=== PATIENT | male | born 1965 | race Caucasian/White ===

== ENCOUNTER 2021-11-27 11:04 | Outpatient (REF) | payer OTHER, SELFPAY ==
[2021-11-27 13:36] LABS: Mean Corpuscular Hemoglobin 31.2 pg (27.0-33.0); Mean Corpuscular Volume 91.8 fL (80.0-98.0); Platelet Count 283 X10*3/uL (160-400); Red Cell Distribution Width 12.5 % (11.0-16.0); White Blood Count 5.6 X10*3/uL (4.8-10.8)
[2021-11-27 14:04] LABS: Albumin Level 4.2 g/dL (3.5-5.0); Alkaline Phosphatase 76 U/L (39-117); Anion Gap 11 (12-20); Bilirubin Total 1.2 mg/dL (0.0-1.0); Blood Urea Nitrogen 15 mg/dL (9-16); Calcium 9.3 mg/dL (8.4-10.2); Carbon Dioxide 25 mmol/L (22-29); Chloride 104 mmol/L (96-108); Cholesterol 215 mg/dL; Estimated Glomerular Filt Rate 58; Glucose Random 113 mg/dL (60-115); HDL Cholesterol 56 mg/dL; LDL Cholesterol Calculated 130 mg/dl; Potassium 4.4 mmol/L (3.3-5.1); Sodium 136 mmol/L (135-145); Total Protein 7.1 g/dL (6.5-8.0); Triglycerides 145 mg/dL
[2021-11-27 14:25] LABS: TSH reflex Free T4 1.88 uIU/mL (0.32-4.0)
[2021-12-20 09:56] LABS: Hematocrit 45.9 % (42.0-52.0); Hemoglobin 15.6 g/dl (14.0-18.0); Mean Platelet Volume 9.6 fL (9.4-12.4)
[2021-12-20 09:58] LABS: Aspartate Amino Transferase 21 U/L (5-37)
[2021-12-20 09:59] LABS: Alanine Aminotransferase 22 U/L (0-40); Prostate Specific Antigen Scr 0.71 ng/mL (<0.05-4.0)
== END 2021-11-27 11:05 | disposition home or self-care (01) ==
LOC: HO.WFDLDS 11:04
PROVIDERS: Visit Provider Hospitalist
DX: Z00.00 Encounter for general adult medical examination without abnormal findings (principal); Z12.5 Encounter for screening for malignant neoplasm of prostate
CPT/HCPCS: 36415; 80053; 80061; 84153; 84443; 85027

== ENCOUNTER 2023-06-13 14:44 | Outpatient (AMB) | payer OTHER, SELFPAY ==
--- NOTE | 2023-06-13 14:57 | A.OFFPC_ITS ---
Vital Signs 06/13/23 15:00 Height 5 ft 6 in Weight 176 lb BMI 28.4 BP 140/76 H Blood Pressure Location Lt brachial Position Sitting Respiration 12 Pulse 70 Pulse Source Pulse Oximeter Pulse Oximetry (%) 98 Oxygen Delivery Method Room Air Intake Visit Reasons: trans of care from [facility]/ [facility] Intake Note: Patient is here as transfer of care from [facility]. Patient needs refill of his Vyvanse on Saturday. Allergies No Known Allergies Allergy (Verified 06/13/23 15:01) Tobacco use date assessed: 11/27/21 Dental Screening Dental Screen Date: 06/13/23 Did you have a dental visit in the last 12 months?: Yes Did you have a dental problem in the last 6 months where you did not have access to dental care?: No Was dental information given to patient?: Patient has dentist HPI trans of care from [facility]/ [facility] HPI Details Transfer?care?from?[facility] Prior?PCP:??[facility] Acute?issue(s): PMHx:??ADHD SurgHx: Chest wall fatty Mass, R achilles Bone Spur, R elbow tendonitis. Cervical fusion. SocHx: Currently trying to quit. a few cigs per month. EtOH: Rarely. No drugs PFSH Surgical History Herniated cervical disc Family History Father No problems noted. Mother No problems noted. Social History Housing: House Alcohol intake: never Patient Tobacco Use Status: Former Tobacco user e-Cigarette/Vaping Use: Never Used Second Hand Smoke Exposure: No service: No Current occupational status: unemployed Cognitive needs: No Hearing needs: No Vision needs: No Questionnaire Thrive Questionnaire Date Thrive assessed: 11/27/21 DONA-7 AMB Questionnaire DONA-7 Date DONA - 7 assessed: 10/17/22 Source: Developed by Drs. Francisco Sandoval, Elyssa Cisneros, Devon Ma and colleagues, with an educational francie from [employer]. Review of Systems Const Denies chills, Denies fatigue, Denies fever(s), Denies headache(s) and Denies weakness ENT Denies dizziness and Denies headache(s) Card Denies chest pain, Denies lightheadedness, Denies dyspnea and Denies other (Palpitations) Resp Denies cough, Denies dyspnea, Denies wheezing and Denies other ( shortness of breath) Musc Denies numbness and Denies tingling Neuro Denies dizziness, Denies headache(s), Denies numbness, Denies tingling, Denies paresthesias and Denies weakness Psych Denies anxiety and Denies depression Endo Denies fatigue Aller/Immun Denies wheezing Physical exam (Primary Care) Vital Signs: Last Vital Signs Pulse 70 06/13/23 15:00 Resp 12 06/13/23 15:00 BP 140/76 H 06/13/23 15:00 Pulse Ox 98 06/13/23 15:00 Oxygen Delivery Method Room Air 06/13/23 15:00 BMI result Body Mass Index 28.4 Tobacco/Smoking Status: Tobacco use Status Tobacco use date assessed 11/27/21 06/13/23 14:59 Patient Tobacco Use Status Former Tobacco user 06/13/23 14:59 e-Cigarette/Vaping Use Never Used 06/13/23 14:59 Thrive Assessment: Date of Thrive Assessment Date Thrive assessed 11/27/21 06/13/23 14:59 Const General: no acute distress and well developed Nutritional Appearance: well nourished Orientation/consciousness: patient oriented x3 HENMT Head: Yes normocephalic and Yes atraumatic Eyes General: appearance normal, both eyes and all related structures Pupils: Equal, round and reactive pupils present EOM: EOMs intact bilaterally Resp Effort & Inspection: normal respiratory effort Auscultation: clear to auscultation bilaterally Cardio Rate: regular rate Rhythm: regular rhythm Heart sounds: S1 normal heart sound present, S2 normal heart sound present, no gallops, no murmurs and no rubs Neuro General: patient oriented x3 and gait normal Cranial nerves: Yes Equal, round and reactive pupils present Psych Affect: normal affect Assessment and Plan Assessment & Plan (1) ADHD: Code(s): F90.9 - Attention-deficit hyperactivity disorder, unspecified type Qualifiers: Attention deficit-hyperactivity disorder type: combined inattentive- hyperactive Qualified Code(s): F90.2 - Attention-deficit hyperactivity disorder, combined type Plan: Patient?has?been?taking?Vyvanse?consistently?with?his?prior?PCP,?Joanna?Saba W ill?continue?this?medication.??Patient?will?fill?out?treatment?agreement?contrac t?today. Continue?current?medication.??Patient?understands?that?he?will?need?to?be?seen?a t?least?3?to?4?times?a?year (2) Smoker: Code(s): F17.200 - Nicotine dependence, unspecified, uncomplicated Plan: Almost?completely?quit Encouraged?ongoing?work?at?cessation. (3) Anxiety: Code(s): F41.9 - Anxiety disorder, unspecified Plan: Patient?is?under?a?lot?of?stress?due?to?the?health?of?his?sister. Offered?therapist?and?briefly?mention?that?medications?are?available. Patient?declines?at?present?but?I? let?him?know?that?he?can?discuss?this?with?me?if?he?changes?his?mind. (4) Pre-hypertension: Code(s): R03.0 - Elevated blood-pressure reading, without diagnosis of hypertension Plan: Will?continue?to?follow. Encouraged?diet,?exercise?and?weight?loss?as?well?as?avoiding?salt/sodium. (5) White coat syndrome without hypertension: Code(s): R03.0 - Elevated blood-pressure reading, without diagnosis of hypertension Plan: Patient?checks?his?blood?pressures?at?home?and?they?are?a?little?lower?but?still ?in?prehypertensive?range. Continue?to?follow?this (6) Laboratory exam ordered as part of routine general medical examination: Code(s): Z00.00 - Encounter for general adult medical examination without abnormal findings Plan: Check?lab Coding Level of Care Code Est Pt Level 4 (47799) Diagnoses Attention deficit hyperactivity disorder (ADHD), combined type F90.2 Attention deficit-hyperactivity disorder type: combined inattentive- hyperactive Smoker F17.200 Anxiety F41.9 Pre-hypertension R03.0 White coat syndrome without hypertension R03.0 Laboratory exam ordered as part of routine general medical examination Z00.00
[2023-06-13 15:00] VITALS: BP 140/76; PULSE 70; RESP 12; O2SAT 98; BMI 28.4
== END 2023-06-13 16:51 | disposition home or self-care (01) ==
PROVIDERS: PCP Hospitalist; Visit Provider Family Medicine
DX: F90.2 Attention-deficit hyperactivity disorder, combined type (principal); F17.200 Nicotine dependence, unspecified, uncomplicated; F41.9 Anxiety disorder, unspecified; R03.0 Elevated blood-pressure reading, without diagnosis of hypertension; Z00.00 Encounter for general adult medical examination without abnormal findings
CPT/HCPCS: 99214

== ENCOUNTER 2023-10-28 08:08 | Outpatient (AMB) | payer OTHER, SELFPAY ==
--- NOTE | 2023-10-28 08:24 | A.OFFPC_ITS ---
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 No recent labs to review. Blood pressure today 138/70. He is on Vyvanse 70mg. He denies any issues with increased anxiety, sleep difficulties, appetite issues. Medication works well per pt. He notes he does not get much exercise. Pt reports last colonoscopy was when he was 49 - he notes they had found polyps and they had recommended a 5 year follow-up. [facility] Surgical History Herniated cervical disc Family History Father No problems noted. Mother No problems noted. Social History Housing: House Alcohol intake: never Patient Tobacco Use Status: Former Tobacco user e-Cigarette/Vaping Use: Never Used Second Hand Smoke Exposure: No service: No Current occupational status: unemployed Cognitive needs: No Hearing needs: No Vision needs: No Questionnaire PHQ-9 Over the last 2 weeks, how often have you been bothered by any of the following problems? 1. Little interest or pleasure in doing things: not at all 2. Feeling down, depressed, or hopeless: not at all 3. Trouble falling or staying asleep, or sleeping too much: not at all 4. Feeling tired or having little energy: not at all 5. Poor appetite or overeating: not at all 6. Feeling bad about yourself - or that you are a failure or have let yourself or your family down: not at all 7. Trouble concentrating on things, such as reading the newspaper or watching television: not at all 8. Moving or speaking so slowly that other people could have noticed. Or the opposite - being so fidgety or restless that you have been moving around a lot more than usual: not at all 9. Thoughts that you would be better off or of hurting yourself in some way: not at all Total score: 0 Depression Screening Interpretation: Negative Depression Screening Done: Yes 12240 - PHQ-9 Billing: Yes Source: Developed by Drs. Francisco Sandoval, Elyssa Cisneros, Devon Ma and colleagues, with an educational francie from [employer]. Thrive Questionnaire Date Thrive assessed: 10/28/23 I am a: Patient What is your living situation today?: I have a steady place to live Within the past 12 months, did the food you bought not last and you didn't have the money to get more?: Never true Within the past 12 months, did you worry whether your food would run out before you got money to buy more?: Never true Do you have trouble paying for medicines?: No Do you have trouble getting transportation to medical appointments?: No Do you have trouble paying your heating and electricity bill?: Yes Do you have trouble taking care of your child, family member or friend?: No Do you have trouble with day-to-day activities such as bathing, preparing meals, shopping, managing finances, etc.?: No Are you currently unemployed and looking for a job?: Yes Are you interested in more education?: No Please select the resources that you would like help with: Utilities and Job search/training Currently or been in a relationship where the following occur: no concerns reported THRIVE Score: 1 AUDIT C Alcohol Use Questionnaire (AUDIT-C) 1. How often do you have a drink containing alcohol?: Monthly or less 2. How many drinks containing alcohol do you have on a typical day when you are drinking?: 1 or 2 3. How often do you have six or more drinks on one occasion?: Never Total Score: 1 DONA-7 AMB Questionnaire DONA-7 Date DONA - 7 assessed: 10/28/23 Feeling nervous, anxious, or on edge: 0 = Not at all Not being able to stop or control worryin = Not at all Worrying too much about different things: 0 = Not at all Trouble relaxin = Not at all Being so restless that it is hard to sit still: 0 = Not at all Becoming easily annoyed or irritable: 0 = Not at all Feeling afraid as if something awful might happen: 0 = Not at all Total DONA-7 score (0-4 normal; 5-9 mild; 10-14 moderate; 15-21 severe): 0 Source: Developed by Drs. Francisco Sandoval, Elyssa Cisneros, Devon Ma and colleagues, with an educational francie from [employer]. DONA-7 Assessment Billing DONA-7 Assessment Tool: DONA-7 Assessment 73806 Review of Systems Const Denies chills, Denies fatigue, Denies fever(s), Denies headache(s) and Denies weakness Eyes Denies change in vision ENT Denies dizziness, Denies headache(s), Denies hearing loss, Denies nasal congestion, Denies sinus pain, Denies sinus pressure and Denies sore throat Card Denies chest pain, Denies lightheadedness, Denies dyspnea and Denies other (palpitations) Resp Denies cough, Denies dyspnea and Denies wheezing GI Denies abdominal pain, Denies melena, Denies hematochezia, Denies change in bowel habits, Denies dyspepsia and Denies nausea Denies hematuria and Denies dysuria Musc Denies abnormal gait, Denies myalgias, Denies arthralgias, Denies numbness and Denies tingling Skin/Breast Denies rash, Denies unusual bruising and Denies wounds Neuro Denies abnormal gait, Denies dizziness, Denies headache(s), Denies memory loss, Denies numbness, Denies Sensory deficit (Neuro), Denies tingling and Denies weakness Psych Denies anxiety, Denies depression and Denies memory loss Endo Denies cold intolerance, Denies fatigue, Denies heat intolerance, Denies polydipsia and Denies polyuria Omid/Lymph Denies easy bleeding and Denies easy bruising Aller/Immun Denies wheezing Physical exam (Primary Care) Vital Signs: Last Vital Signs Temp 98 F 10/28/23 08:27 Pulse 68 10/28/23 08:27 Resp 14 10/28/23 08:27 BP 138/70 10/28/23 08:27 Pulse Ox 98 10/28/23 08:27 Oxygen Delivery Method Room Air 10/28/23 08:27 BMI result Body Mass Index 27.5 Tobacco/Smoking Status: Tobacco use Status Tobacco use date assessed 10/28/23 10/28/23 08:34 Patient Tobacco Use Status Former Tobacco user 10/28/23 08:24 e-Cigarette/Vaping Use Never Used 10/28/23 08:24 PHQ-9: PHQ-9 Score PHQ-9: Total score 0 10/28/23 08:45 Depression Screening Interpretation: Negative Thrive Assessment: Date of Thrive Assessment Date Thrive assessed 10/28/23 10/28/23 08:34 Currently or been in a relationship where the following occur: no concerns reported Const General: no acute distress, well developed, alert and awake Nutritional Appearance: well nourished Orientation/consciousness: patient oriented x3 HENMT Head: Yes normocephalic and Yes atraumatic Ears: hearing grossly normal bilaterally and TM's normal bilaterally General nose exam: Normal external nose present and Normal nares present Mouth: Normal oral and palatal mucosa present and moist mucous membranes Teeth and gingiva: dentition normal Throat: Yes posterior oropharynx normal Eyes General: appearance normal, both eyes and all related structures Pupils: Equal, round and reactive pupils present and Pupil accommodation reflex normal EOM: EOMs intact bilaterally Neck Neck: Yes normal visual inspection, Yes no lymphadenopathy and Yes trachea midline Thyroid: Thyroid normal Carotids: no bruits Lymphatic: no lymphadenopathy noted Chest Chest palpation & inspection: normal inspection of the chest Resp Effort & Inspection: normal respiratory effort Auscultation: clear to auscultation bilaterally Cardio Rate: regular rate Rhythm: regular rhythm Heart sounds: S1 normal heart sound present, S2 normal heart sound present, no gallops, no murmurs and no rubs Bruits: no abdominal aortic bruits and no carotid bruits GI Palpation (GI): No Abdominal aortic bruit present, Soft to palpation, nontender, No hepatosplenomegaly present and No Rebound tenderness present Auscultation: normal bowel sounds General: Yes no CVA tenderness Back/Spine/Pelvis Back: no CVA tenderness Cervical Spine: cervical ROM normal and No Cervical spine tenderness Thoracic/Lumbar Spine: thoraco-lumbar ROM normal, No pain with thoraco-lumbar ROM, No thoracic spinal tenderness and No lumbar spinal tenderness Skin Lesions: no lesions Rashes: no rashes Trauma: no lacerations or abrasions Wounds: no wounds Nails: normal Neuro General: patient oriented x3 Cranial nerves: Yes Equal, round and reactive pupils present Cognition (Neuro): normal cognition Gait exam (Neuro): Normal gait present Motor exam (neuro): 5/5 motor strength present throughout Sensory Exam: No Sensory deficit (Neuro) Deep tendon reflexes (DTR's): Right patellar reflex intensity grade: 2+ and Left patellar reflex intensity grade: 2+ Extrem General: Yes normal to inspection and No edema Psych Appearance: grossly normal Affect: normal affect Attitude: cooperative Thought process: Normal thought process present Assessment and Plan Assessment & Plan (1) Pre-hypertension: Code(s): R03.0 - Elevated blood-pressure reading, without diagnosis of hypertension Plan: Encouraged?salt/sodium?avoidance?and?weight?loss?as?well?as?exercise (2) ADHD: Code(s): F90.9 - Attention-deficit hyperactivity disorder, unspecified type Qualifiers: Attention deficit-hyperactivity disorder type: combined inattentive- hyperactive Qualified Code(s): F90.2 - Attention-deficit hyperactivity disorder, combined type Plan: Vyvanse?is?efficacious?and?is?not?causing?any?appetite,?anxiety?or?sleep?problem s. Continue?current?medication (3) Screening for prostate cancer: Code(s): Z12.5 - Encounter for screening for malignant neoplasm of prostate Plan: Check?PSA (4) Screening for colon cancer: Code(s): Z12.11 - Encounter for screening for malignant neoplasm of colon Plan: Patient?notes?he?had?a?polyp?found?at?age?49?and?was?told?to?follow- up?at?age?54?but?has?not?done?so?yet. He?is?overdue?for?colonoscopy He?would?like?a?referral?in[place]near[place] Referred (5) Adult general medical examination: Code(s): Z00.00 - Encounter for general adult medical examination without abnormal findings Plan: 58-year-old?male?presents?for?an?extended?exam Encouraged?healthy?diet?with?active?lifestyle?and?plenty?of?exercise Orders: Orders Lipid Panel Today Z00.00 - Encounter for general adult medical examination without abnormal findings TSH reflex Free T4 Today Z00.00 - Encounter for general adult medical examination without abnormal findings UA and rflx microscopic Today Z00.00 - Encounter for general adult medical examination without abnormal findings Comprehensive [place]. Panel Fast Today Z00.00 - Encounter for general adult medical examination without abnormal findings Microalbumin, Random (w Creat) Today I10 - Essential (primary) hypertension Prostate Specific Antigen Scr Today Z12.5 - Encounter for screening for malignant neoplasm of prostate Referrals Gastroenterology Referral Z12.11 - Encounter for screening for malignant neoplasm of colon, Z86.010 - Personal history of colonic polyps Coding Level of Care Code Est Pt Level 4 (82153) Diagnoses Pre-hypertension R03.0 Attention deficit hyperactivity disorder (ADHD), combined type F90.2 Attention deficit-hyperactivity disorder type: combined inattentive- hyperactive Screening for prostate cancer Z12.5 Screening for colon cancer Z12.11 Adult general medical examination Z00.00 Additional Codes DONA-7 Assessment Billing - DONA-7 Assessment Tool: DONA-7 Assessment 76322 ([id number])
[2023-10-28 08:27] VITALS: BP 138/70; PULSE 68; RESP 14; TEMP 36.6; O2SAT 98; BMI 27.5
== END 2023-10-28 08:59 | disposition home or self-care (01) ==
PROVIDERS: PCP Family Medicine; Visit Provider Family Medicine
DX: Z00.00 Encounter for general adult medical examination without abnormal findings (principal); R03.0 Elevated blood-pressure reading, without diagnosis of hypertension; F90.2 Attention-deficit hyperactivity disorder, combined type; Z12.5 Encounter for screening for malignant neoplasm of prostate; Z12.11 Encounter for screening for malignant neoplasm of colon
CPT/HCPCS: 99396

== ENCOUNTER 2023-10-28 08:52 | Outpatient (REF) | payer OTHER, SELFPAY ==
[2023-10-28 11:31] LABS: Appearance Urine Turbid; Color Urine Dark Yellow; Glucose Urine UA Negative (Negative); Leukocyte Esterase Urine Negative (Negative); Nitrite Urine Negative (Negative); PH 5.5 (5.0-9.0); Specific Gravity - Urine 1.025 (1.005-1.025); Urine Blood Negative (Negative); Urine Ketones Negative (Negative); Urine Protein Negative (Neg-Trace)
[2023-10-28 11:56] LABS: Alanine Aminotransferase 19 U/L (0-40); Albumin Level 4.4 g/dL (3.5-5.0); Alkaline Phosphatase 70 U/L (39-117); Anion Gap 15 (12-20); Aspartate Amino Transferase 19 U/L (5-37); Bilirubin Total 0.6 mg/dL (0.0-1.0); Blood Urea Nitrogen 13 mg/dL (9-16); Calcium 9.6 mg/dL (8.4-10.2); Carbon Dioxide 25 mmol/L (22-29); Chloride 105 mmol/L (96-108); Cholesterol 206 mg/dL (<200); Estimated Glomerular Filt Rate > 60; Glucose Fasting 109 mg/dL (60-99); HDL Cholesterol 62 mg/dL (>40); LDL Cholesterol Calculated 132 mg/dL (<100); Potassium 3.7 mmol/L (3.3-5.1); Sodium 141 mmol/L (135-145); Total Protein 7.2 g/dL (6.5-8.0); Triglycerides 60 mg/dL (<150)
[2023-10-28 12:03] LABS: Prostate Specific Antigen Scr 0.89 ng/mL (<0.05-4.0)
[2023-10-28 12:10] LABS: Microalbum/Creatinine Ratio Ur 3.9 ug/mg cr (<30)
[2023-10-28 12:11] LABS: TSH reflex Free T4 1.94 uIU/mL (0.32-4.0)
== END 2023-10-28 08:53 | disposition home or self-care (01) ==
LOC: HO.WFDLDS 08:52
PROVIDERS: Visit Provider Family Medicine
DX: Z00.00 Encounter for general adult medical examination without abnormal findings (principal); I10 Essential (primary) hypertension; Z12.5 Encounter for screening for malignant neoplasm of prostate
CPT/HCPCS: 36415; 80053; 80061; 81003; 82043; 82570; 84153; 84443

== ENCOUNTER → 2023-11-28 14:28 | Outpatient (AMB) | payer OTHER, SELFPAY ==
--- NOTE | 2023-11-28 13:55 | A.OFFPC_ITS ---
Intake Visit Reasons: f/u CPE-labs via telemedicine Intake Note: Patient is scheduled to go over labs today, and he is also requesting for his Vyvanse to be filled every 30 days instead of 28. Also, he stated that his colonoscopy is scheduled for pre procedure in [place] to get the procedure done in [place], [place]. Allergies No Known Allergies Allergy (Verified 11/28/23 13:57) Tobacco use date assessed: 11/28/23 Dental Screening Dental Screen Date: 10/28/23 HPI f/u CPE-labs via telemedicine HPI Details 58 y/o male presents to f/u CPE-labs via telemedicine. Labs were drawn 10/28/23. Reviewed labs with pt. Triglycerides 60. TC 206. LDL 132. HDL 62. Elevated fasting glucose of 109. He notes FHx of diabetes. HPI Comments History of Present Illness Details Documentation assistance for Reinaldo Kim MD, was provided by David Westbrook, Refrigerator Assembler on 11/28/2023 4:32 PM EST. I, Dr. Kim, have read, observed, and verified documentation. [facility] Surgical History Herniated cervical disc Family History Father No problems noted. Mother No problems noted. 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 Francisco Sandoval, Elyssa Cisneros, Devon Ma and colleagues, with an educational francie from [employer]. Review of Systems Const Denies chills, Denies fatigue, Denies fever(s), Denies headache(s) and Denies weakness ENT Denies dizziness and Denies headache(s) Card Denies dyspnea Resp Denies cough, Denies dyspnea, Denies wheezing and Denies other (shortness of breath) Musc Denies numbness and Denies tingling Neuro Denies dizziness, Denies headache(s), Denies numbness, Denies tingling and Denies weakness Psych Denies anxiety and Denies depression Endo Denies fatigue Aller/Immun Denies wheezing Physical exam (Primary Care) Tobacco/Smoking Status: Tobacco use Status Tobacco use date assessed 11/28/23 11/28/23 14:01 Patient Tobacco Use Status Former Tobacco user 11/28/23 14:01 e-Cigarette/Vaping Use Never Used 11/28/23 14:01 Thrive Assessment: Date of Thrive Assessment Date Thrive assessed 10/28/23 11/28/23 14:01 Telehealth Telehealth Telehealth Platform: Telephone Location of provider rendering services: practice address Location of patient: address on file Patient Identification confirmed using: Name, : Yes Telehealth method: voice only Patient verbally consented to treatment: Yes Patient verbally consented to billing insurance company: Yes Patient informed of any privacy concerns related to visit: Yes Minutes spent on Phone/Video with Pt.: 17 Assessment and Plan Assessment & Plan (1) Hypercholesterolemia: Code(s): E78.00 - Pure hypercholesterolemia, unspecified Plan: LDL?cholesterol?is?mildly?elevated?above?130?which?is?goal Encouraged?lifestyle?changes Will?recheck?in?3?months However,?we?discussed?that?his?blood?sugars?are?mildly?elevated?and?he?does?h ave?a?family?history?of?diabetes.??Goal?of?less?than?100?may?be?established (2) Elevated fasting glucose: Code(s): R73.01 - Impaired fasting glucose Plan: Elevated?fasting?blood?sugar?and?family?history?of?diabetes Will?recheck?fasting?blood?sugar?as?well?as?A1c?with?his?next?blood?draw?an d?review?at?next?visit Encouraged?diet?low?in?sugars?and?starches Patient?says?he?has?access?to?blood?sugar?testing?supplies?and?will?check?his?mo rning?blood?sugars?to?bring?in?a?log?to?discuss (3) ADHD: Code(s): F90.9 - Attention-deficit hyperactivity disorder, unspecified type Qualifiers: Attention deficit-hyperactivity disorder type: combined inattentive- hyperactive Qualified Code(s): F90.2 - Attention-deficit hyperactivity disorder, combined type Plan: Patient?requests?prescription?change?from?20/8?day?cycle?to?30 day cycle Okay?to?make?this?change (4) Screening for colon cancer: Code(s): Z12.11 - Encounter for screening for malignant neoplasm of colon Plan: Patient?informs?that?he?has?his?colonoscopy?scheduled (5) Family history of diabetes mellitus: Code(s): Z83.3 - Family history of diabetes mellitus Plan: Encouraged?diet?low?in?sugars?and?starches Orders: Orders Comprehensive [place]. Panel Fast Today R73.01 - Impaired fasting glucose, Z00.00 - Encounter for general adult medical examination without abnormal findings Hemoglobin A1c Today R73.01 - Impaired fasting glucose Lipid Panel Today E78.00 - Pure hypercholesterolemia, unspecified, Z00.00 - Encounter for general adult medical examination without abnormal findings Medications: Changed From lisdexamfetamine (Vyvanse) partial fill available upon request 70 mg PO QAM 28 days 28 caps 0RF F90.2 - Attention-deficit hyperactivity disorder, combined type To lisdexamfetamine (Vyvanse) [facility] verfied. partial fill available upon request 70 mg PO QAM 30 days 30 caps 0RF F90.2 - Attention-deficit hyperactivity disorder, combined type Coding Level of Care Code Tele Est Pt Level 2 (63194) Diagnoses Hypercholesterolemia E78.00 Elevated fasting glucose R73.01 Attention deficit hyperactivity disorder (ADHD), combined type F90.2 Attention deficit-hyperactivity disorder type: combined inattentive- hyperactive Screening for colon cancer Z12.11 Family history of diabetes mellitus Z83.3
== END ==
PROVIDERS: PCP Family Medicine; Visit Provider Family Medicine
DX: E78.00 Pure hypercholesterolemia, unspecified (principal); R73.01 Impaired fasting glucose; F90.2 Attention-deficit hyperactivity disorder, combined type; Z12.11 Encounter for screening for malignant neoplasm of colon; Z83.3 Family history of diabetes mellitus
CPT/HCPCS: 99212

== ENCOUNTER 2024-03-25 15:30 | Outpatient (AMB) | payer OTHER, SELFPAY ==
--- NOTE | 2024-03-25 16:03 | A.OFFPC_ITS ---
Vital Signs 03/25/24 16:09 Height 5 ft 6 in BP 140/70 H Blood Pressure Location Rt brachial Position Sitting Respiration 12 Pulse 84 Pulse Source Pulse Oximeter Temp 98.5 F Temp Source Tympanic Pulse Oximetry (%) 96 Oxygen Delivery Method Room Air Intake Visit Reasons: f/u elevated fbs, increased cholesterol and adhd Intake Note: F/U for lab review Allergies No Known Allergies Allergy (Verified 03/25/24 16:05) Tobacco use date assessed: 11/28/23 Dental Screening Dental Screen Date: 10/28/23 HPI f/u elevated fbs, increased cholesterol and adhd HPI Details 58 y/o male presents to f/u elevated fas ting blood sugars, mildly elevated cholesterol. No recent labs to review. He is on Vyvanse 70mg for ADHD. Still reports ongoing difficulties getting Vyvanse on time. Denies any increased anxiety, sleep difficulties. Works well with his ADHD. A1c today 03/25/24 is 5.2%. HPI Comments History of Present Illness Details Documentation assistance for Reinaldo Kim MD, was provided by David Westbrook, [employer] on 03/25/2024 at 4:18 PM EST. I, Dr. Kim, have read, observed, and verified documentation. ON LICENSE OF [facility] Surgical History Herniated cervical disc Family History Father No problems noted. Mother No problems noted. 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 Francisco Sandoval, Elyssa Cisneros, Devon Ma and colleagues, with an educational francie from [employer]. Review of Systems Const Denies chills, Denies fatigue, Denies fever(s), Denies headache(s) and Denies weakness ENT Denies dizziness and Denies headache(s) Card Denies dyspnea Resp Denies cough, Denies dyspnea, Denies wheezing and Denies other (shortness of breath) Musc Denies numbness and Denies tingling Neuro Denies dizziness, Denies headache(s), Denies numbness, Denies tingling and Denies weakness Psych Denies anxiety and Denies depression Endo Denies fatigue Aller/Immun Denies wheezing Physical exam (Primary Care) Vital Signs: Last Vital Signs Temp 98.5 F 03/25/24 16:09 Pulse 84 03/25/24 16:09 Resp 12 03/25/24 16:09 BP 140/70 H 03/25/24 16:09 Pulse Ox 96 03/25/24 16:09 Oxygen Delivery Method Room Air 03/25/24 16:09 Tobacco/Smoking Status: Tobacco use Status Tobacco use date assessed 11/28/23 03/25/24 16:04 Patient Tobacco Use Status Former Tobacco user 03/25/24 16:04 e-Cigarette/Vaping Use Never Used 03/25/24 16:04 Thrive Assessment: Date of Thrive Assessment Date Thrive assessed 10/28/23 03/25/24 16:04 Const General: well developed; No acute distress Nutritional Appearance: well nourished Orientation/consciousness: patient oriented x3 HENMT Head: Yes normocephalic and Yes atraumatic Eyes General: appearance normal, both eyes and all related structures Pupils: Equal, round and reactive pupils present EOM: EOMs intact bilaterally Resp Effort & Inspection: normal respiratory effort Auscultation: clear to auscultation bilaterally Cardio Rate: regular rate Rhythm: regular rhythm Heart sounds: S1 normal heart sound present, S2 normal heart sound present, no gallops, no murmurs and no rubs Neuro General: patient oriented x3 and gait normal Cranial nerves: Yes Equal, round and reactive pupils present Psych Affect: normal affect Assessment and Plan Assessment & Plan (1) Elevated fasting glucose: Code(s): R73.01 - Impaired fasting glucose Plan: A1c?today:??5.2%. This?is?in?high?normal?range Will?continue?to?monitor (2) Hypercholesterolemia: Code(s): E78.00 - Pure hypercholesterolemia, unspecified Plan: Has?not?had?his?lipids?drawn?but?will?do?so?this?coming?week (3) ADHD: Code(s): F90.9 - Attention-deficit hyperactivity disorder, unspecified type Qualifiers: Attention deficit-hyperactivity disorder type: combined inattentive- hyperactive Qualified Code(s): F90.2 - Attention-deficit hyperactivity disorder, combined type Plan: Patient?is?taking?Vyvanse. Medication?is?e fficacious?and?he?does?not?have?any?adverse?effects?such?as?sleep?disturbance,?a ppetite?suppression?or?anxiety?from?this?medication Continue?current?medication Medications: Refilled lisdexamfetamine (Vyvanse) [facility] verfied. partial fill available upon request 70 mg PO QAM 30 days 30 caps 0RF F90.2 - Attention-deficit hyperactivity disorder, combined type Coding Level of Care Code Est Pt Level 3 (28478) Diagnoses Elevated fasting glucose R73.01 Hypercholesterolemia E78.00 Attention deficit hyperactivity disorder (ADHD), combined type F90.2 Attention deficit-hyperactivity disorder type: combined inattentive- hyperactive
[2024-03-25 16:09] VITALS: BP 140/70; PULSE 84; RESP 12; TEMP 36.9; O2SAT 96
== END 2024-03-25 16:35 | disposition home or self-care (01) ==
PROVIDERS: PCP Family Medicine; Visit Provider Family Medicine
DX: R73.01 Impaired fasting glucose (principal); E78.00 Pure hypercholesterolemia, unspecified; F90.2 Attention-deficit hyperactivity disorder, combined type
CPT/HCPCS: 99213

== ENCOUNTER 2024-07-27 08:32 | Outpatient (AMB) | payer OTHER, SELFPAY ==
--- NOTE | 2024-07-27 08:34 | MHC.PC.OV ---
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 A1c today 5.1%. [facility] Surgical History Herniated cervical disc Family History Father No problems noted. Mother No problems noted. 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 1. Little interest or pleasure in doing things: not at all 2. Feeling down, depressed, or hopeless: not at all 3. Trouble falling or staying asleep, or sleeping too much: not at all 4. Feeling tired or having little energy: not at all 5. Poor appetite or overeating: not at all Source: Developed by Drs. Francisco Sandoval, Elyssa Cisneros, Devon Ma and colleagues, with an educational francie from [employer]. Thrive Questionnaire Date Thrive assessed: 10/28/23 I am a: Patient What is your living situation today?: I choose not to answer this question Within the past 12 months, did the food you bought not last and you didn't have the money to get more?: I choose not to answer this question Within the past 12 months, did you worry whether your food would run out before you got money to buy more?: I choose not to answer this question Do you have trouble paying for medicines?: I choose not to answer this question Do you have trouble getting transportation to medical appointments?: I choose not to answer this question Do you have trouble paying your heating and electricity bill?: I choose not to answer this question Do you have trouble taking care of your child, family member or friend?: I choose not to answer this question Do you have trouble with day-to-day activities such as bathing, preparing meals, shopping, managing finances, etc.?: I choose not to answer this question Are you currently unemployed and looking for a job?: I choose not to answer this question Are you interested in more education?: I choose not to answer this question Please select the resources that you would like help with: None Currently or been in a relationship where the following occur: I choose not to answer THRIVE Score: 0 AUDIT C Alcohol Use Questionnaire (AUDIT-C) 1. How often do you have a drink containing alcohol?: Never Total Score: 0 DONA-7 AMB Questionnaire DONA-7 Date DONA - 7 assessed: 10/28/23 Feeling nervous, anxious, or on edge: 0 = Not at all Not being able to stop or control worryin = Not at all Worrying too much about different things: 0 = Not at all Trouble relaxin = Not at all Being so restless that it is hard to sit still: 0 = Not at all Becoming easily annoyed or irritable: 0 = Not at all Feeling afraid as if something awful might happen: 0 = Not at all Total DONA-7 score (0-4 normal; 5-9 mild; 10-14 moderate; 15-21 severe): 0 Source: Developed by Drs. Francisco Sandoval, Elyssa Cisneros, Devon Ma and colleagues, with an educational francie from [employer]. Review of Systems Const Denies chills, Denies fatigue, Denies fever(s), Denies headache(s) and Denies weakness ENT Denies dizziness and Denies headache(s) Card Denies dyspnea Resp Denies cough, Denies dyspnea, Denies wheezing and Denies other (shortness of breath) Musc Denies numbness and Denies tingling Neuro Denies dizziness, Denies headache(s), Denies numbness, Denies tingling and Denies weakness Psych Denies anxiety and Denies depression Endo Denies fatigue Aller/Immun Denies wheezing Physical exam (Primary Care) Vital Signs: Last Vital Signs Temp 97.5 F 07/27/24 08:36 Pulse 75 07/27/24 08:36 Resp 16 07/27/24 08:36 BP 125/82 07/27/24 08:36 Pulse Ox 97 07/27/24 08:36 Oxygen Delivery Method Room Air 07/27/24 08:36 BMI result Body Mass Index 27.5 Tobacco/Smoking Status: Tobacco use Status Tobacco use date assessed 07/27/24 07/27/24 08:39 Patient Tobacco Use Status Former Tobacco user 07/27/24 08:39 e-Cigarette/Vaping Use Never Used 07/27/24 08:39 Thrive Assessment: Date of Thrive Assessment Date Thrive assessed 10/28/23 07/27/24 08:39 Currently or been in a relationship where the following occur: I choose not to answer Const General: well developed; No acute distress Nutritional Appearance: well nourished Orientation/consciousness: [facility]: Yes normocephalic and Yes atraumatic Eyes General: appearance normal, both eyes and all related structures Pupils: Equal, round and reactive pupils present EOM: EOMs intact bilaterally Resp Effort & Inspection: normal respiratory effort Auscultation: clear to auscultation bilaterally Cardio Rate: regular rate Rhythm: regular rhythm Heart sounds: S1 normal heart sound present, S2 normal heart sound present, no gallops, no murmurs and no rubs Neuro General: patient oriented x3 and gait normal Cranial nerves: Yes Equal, round and reactive pupils present Psych Affect: normal affect Results AMB Hemoglobin A1c AMB Hemoglobin A1c 5.1 % Last Edit by Veronica Gregory on 07/27/24 09:21 Results Reviewed Results Reviewed: Laboratory Last Values Hgb A1c (Clinic) 5.1 % (4.0-6.0) 07/27/24 08:53 Coding Level of Care Code Est Pt Level 4 (75824) Diagnoses Elevated fasting glucose R73.01 H/O adenomatous polyp of colon Z86.010 Attention deficit hyperactivity disorder (ADHD), combined type F90.2 Attention deficit-hyperactivity disorder type: combined inattentive-hyperactive Assessment & Plan Assessment & Plan (1) Elevated fasting glucose: Code(s): R73.01 - Impaired fasting glucose Category: Medical Plan: Fasting?blood?sugars?have?been?elevated?most?recently?109 A1c?is?in?normal?range?at?5.1%. Likely?some?insulin?resistance?and?advised?a?diet?lower?in?sugars?and?starches We?can?monitor?periodically (2) H/O adenomatous polyp of colon: Code(s): Z86.010 - Personal history of colon polyps Category: Medical Plan: Patient?had?recent?colonoscopy?or?sigmoidoscopy?procedure. He?was?told?to?follow-up?again?in?a?year I?do?not?have?report?and?will?request?this (3) ADHD: Code(s): F90.9 - Attention-deficit hyperactivity disorder, unspecified type Category: Medical Qualifiers: Attention deficit-hyperactivity disorder type: combined inattentive-hyperactive Qualified Code(s): F90.2 - Attention-deficit hyperactivity disorder, combined type Plan: Patient?says?that?medication?is?working?at?current?dose Denies?any?adverse?effects?such?as?worsening?of?anxiety,?difficulty?sleeping?or?changes?in?appetite Continue?current?medication Plan Had?also?wanted?to?follow-up?on?patient's?lipids. By?telemedicine Orders: Orders Comprehensive [place]. Panel Fast Today Z00.00 - Encounter for general adult medical examination without abnormal findings Lipid Panel Today Z00.00 - Encounter for general adult medical examination without abnormal findings LDL Cholesterol Direct Today E78.5 - Hyperlipidemia, unspecified AMB Hemoglobin A1c Today Z13.9 - Encounter for screening, unspecified
[2024-07-27 08:36] VITALS: BP 125/82; PULSE 75; RESP 16; TEMP 36.4; O2SAT 97; BMI 27.5
== END 2024-07-27 09:30 | disposition home or self-care (01) ==
PROVIDERS: PCP Family Medicine; Visit Provider Family Medicine
DX: R73.01 Impaired fasting glucose (principal); Z86.0100 Personal history of colon polyps, unspecified; F90.2 Attention-deficit hyperactivity disorder, combined type; Z13.9 Encounter for screening, unspecified

== ENCOUNTER → 2024-07-27 08:32 | Outpatient (BNVA) | payer OTHER, SELFPAY | PROVIDERS: PCP Family Medicine; Visit Provider Family Medicine ==

== ENCOUNTER 2024-07-27 09:08 | Outpatient (REF) | payer OTHER, SELFPAY ==
[2024-07-27 12:09] LABS: Alanine Aminotransferase 20 U/L (0-40); Albumin Level 4.1 g/dL (3.5-5.0); Alkaline Phosphatase 66 U/L (39-117); Anion Gap 9 (12-20); Aspartate Amino Transferase 24 U/L (5-37); Bilirubin Total 0.7 mg/dL (0.0-1.0); Blood Urea Nitrogen 14 mg/dL (9-16); Calcium 9.4 mg/dL (8.4-10.2); Carbon Dioxide 27 mmol/L (22-29); Chloride 108 mmol/L (96-108); Cholesterol 189 mg/dL (<200); Estimated Glomerular Filt Rate > 60; Glucose Fasting 104 mg/dL (60-99); HDL Cholesterol 52 mg/dL (>40); LDL Cholesterol Calculated 109 mg/dL (<100); Potassium 4.3 mmol/L (3.3-5.1); Sodium 140 mmol/L (135-145); Total Protein 6.9 g/dL (6.5-8.0); Triglycerides 144 mg/dL (<150)
[2024-07-29 00:38] LABS: LDL Cholesterol Direct 117 mg/dL (<100)
== END 2024-07-27 09:09 | disposition home or self-care (01) ==
LOC: HO.WFDLDS 09:08
PROVIDERS: Visit Provider Family Medicine
DX: R73.01 Impaired fasting glucose (principal); F90.2 Attention-deficit hyperactivity disorder, combined type; Z86.0101 Personal history of adenomatous and serrated colon polyps; E78.5 Hyperlipidemia, unspecified; Z00.00 Encounter for general adult medical examination without abnormal findings
CPT/HCPCS: 36415; 80053; 80061; 83036; 83721; 99212

== ENCOUNTER 2024-10-12 12:30 | Outpatient (AMB) | payer OTHER, SELFPAY ==
--- NOTE | 2024-10-12 12:28 | MHC.PC.OV ---
Intake Visit Reasons: f/u labs via telemedicine Allergies No Known Allergies Allergy (Verified 10/12/24 12:28) Medication List - Last Reconciled 10/12/24 by Reinaldo Kim MD lisdexamfetamine (Vyvanse) 70 mg PO QAM 30 days Tobacco use date assessed: 07/27/24 Dental Screening Dental Screen Date: 07/27/24 HPI f/u labs via telemedicine HPI Details 59 y/o male presents to review labs. Ongoing elevated lipids. Labs drawn 07/27/24. Reviewed labs with pt. Fasting glucose 104. A1c 5.1%. Triglycerides 144. TC 189. LDL 117. HDL 52. PFSH Surgical History Herniated cervical disc Family History Father No problems noted. Mother No problems noted. 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 Francisco Sandoval, Elyssa Cisneros, Devon Ma and colleagues, with an educational francie from [employer]. Physical exam (Primary Care) Tobacco/Smoking Status: Tobacco use Status Tobacco use date assessed 07/27/24 10/12/24 12:29 Patient Tobacco Use Status Former Tobacco user 10/12/24 12:29 e-Cigarette/Vaping Use Never Used 10/12/24 12:29 Thrive Assessment: Date of Thrive Assessment Date Thrive assessed 07/27/24 10/12/24 12:29 Telehealth Telehealth Telehealth Platform: Telephone Location of provider rendering services: practice address Location of patient: address on file Patient Identification confirmed using: Name, : Yes Telehealth method: voice only Patient verbally consented to treatment: Yes Patient verbally consented to billing insurance company: Yes Patient informed of any privacy concerns related to visit: Yes Minutes spent on Phone/Video with Pt.: 4 Coding Level of Care Code Tele Est Pt Level 2 (13247) Diagnoses Hypercholesterolemia E78.00 Elevated fasting glucose R73.01 Assessment & Plan Assessment & Plan (1) Hypercholesterolemia: Code(s): E78.00 - Pure hypercholesterolemia, unspecified Category: Medical Plan: LDL?cholesterol?is?improving?with?lifestyle?changes. Continue?lifestyle?changes Will?recheck?in?a?few?months. (2) Elevated fasting glucose: Code(s): R73.01 - Impaired fasting glucose Category: Medical Plan: Has?had?some?elevated?fasting?blood?sugars?but?his?last?A1c?was?5.1%?which?is?in?normal?range Will?monitor?periodically Orders: Orders Comprehensive [place]. Panel Fast Today E78.00 - Pure hypercholesterolemia, unspecified, Z00.00 - Encounter for general adult medical examination without abnormal findings Lipid Panel Today E78.00 - Pure hypercholesterolemia, unspecified, Z00.00 - Encounter for general adult medical examination without abnormal findings Medications: Refilled lisdexamfetamine (Vyvanse) [facility] verfied. partial fill available upon request 70 mg PO QAM 30 caps 0RF 30 days F90.2 - Attention-deficit hyperactivity disorder, combined type
--- OUTSIDE RECORDS SUMMARY | 2024-10-12 14:08 | XMS_ITS | Clinical Summary ---
Author Organization [facility] Address [address] [place] [address] Care Team Providers Care Street Worker Name Role Phone Norman Kim Primary Care Provider [phone] Allergies Active Allergy Reactions Criticality Noted Date Comments Tramadol Unknown 08/04/2024 Medications ondansetron (ZOFRAN ODT) 4 mg disintegrating tablet Dissolve 1 tablet (4 mg total) in the mouth every 8 hours as needed for nausea or vomiting. 15 tablet Active Encounters Date Type Department Care Team Description 08/04/2024 9:21 PM EST - 08/05/2024 6:20 AM EST Emergency [facility] Emergency Department [address] [place] [address] Celso Tai MD Gastroenteritis (Primary Dx) Discharge Disposition: Home or Self Care () from Last 3 Months Social History Tobacco Use Types Packs/Day Years Used Date Smoking Tobacco: Former Cigarettes Q uit: 2024 Smokeless Tobacco: Former Tobacco Cessation:Counseling Given: Not Answered Sex and Gender Information Value Date Recorded Sex Assigned at Male 08/05/2024 12:17 AM EST Legal Sex Male 9:21 PM EST Gender Identity Not on file Sexual Orientation Not on file Last Filed Vital Signs Vital Sign Reading Time Taken Comments Blood Pressure 147/77 08/05/2024 2:44 AM EST Pulse 99 08/05/2024 2:44 AM EST Temperature 37.2 ??C (99 ??F) 08/04/2024 9:34 PM EST Respiratory Rate 18 08/05/2024 2:44 AM EST Oxygen Saturation 97% 08/05/2024 2:44 AM EST Inhaled Oxygen Concentration - - Weight 74.8 kg (165 lb) 08/04/2024 9:34 PM EST Height 167.6 cm (5' 6 ) 08/04/2024 9:34 PM EST Body Mass Index 26.63 08/04/2024 9:34 PM EST Plan of Treatment Health Maintenance Due Date Last Done Comments Cologuard 1964 Colon Cancer Screening 1964 Colonoscopy 1964 FOBT / Fit Test 1964 HIV Screening 1964 Sigmoidoscopy 1964 DTaP,Tdap,and Td Vaccines (1 - Tdap) 1986 CT Lung Cancer Screening (Baseline) 2014 Pneumococcal Vaccine: 50+ Ye ars (1 of 1 - PCV) 2014 Zoster Vaccines (1 of 2) 2014 COVID-19 Vaccine ( - 2023-2 5 season) 2024 Influenza Vaccine (#1) 2024 Alcohol/Substance Use Screening 07/15/2024 RSV Vaccine (60+ years old a nd patients) (1 - 1-dose 75+ series) 2039 Hepatitis B Vaccines Aged Out No long er eligible based on patient's age to complete this topic Procedures * Due to [place] state law, this organization might not be sharing negative HIV tests. Procedure Name Priority Date/Time Associated Diagnosis Comments COMPREHENSIVE METABOLIC PANEL STAT 08/05/2024 1:33 AM EST CBC AUTO DIFFERENTIAL STAT 08/05/2024 1:33 AM EST MVL QS - COVID-19, FLU A/B & RSV RNA PCR, SYMPTOMATIC STAT 08/04/2024 9:31 PM EST from Last 3 Months Results * Due to [place] law, this organization might not be sharing negative HIV tests. * (ABNORMAL) CBC Auto Differential (08/05/2024 1:33 AM EST) WBC 7.6 4.8 - 10.8 10*3/uL 08/05/2024 1:41 AM EST [facility] RBC 5.31 4.70 - 6.10 10*6/uL 08/05/2024 1:41 AM [facility] Hemoglobin 16.4 13.7 - 16.5 g/dL 08/05/2024 1:41 AM [facility] Hematocrit 46.6 40.5 - 48.5 % 08/05/2024 1:41 AM [facility] MCV 87.8 80.0 - 94.0 fL 08/05/2024 1:41 AM EST [facility] MCH 30.9 26.0 - 34.0 pg 08/05/2024 1:41 AM [facility] MCHC 35.2 31.0 - 36.0 g/dL 08/05/2024 1:41 AM [facility] RDW 12.0 12.0 - 15.0 % 08/05/2024 1:41 AM [facility] RDW Standard Deviation 38.8 35.1 - 43.9 fL 08/05/2024 1:41 AM [facility] Platelets 249 140 - 440 10*3/uL 08/05/2024 1:41 AM [facility] MPV 9.2(L) 9.4 - 12.4 fL 08/05/2024 1:41 AM [facility] Neutrophil % 86.2(H) 50.0 - 75.0 % 08/05/2024 1:41 AM [facility] Immature Grans % 0.8 0.0 - 0.9 % 08/05/2024 1:41 AM [facility] Lymphocyte % 6.0(L) 20.0 - 44.0 % 08/05/2024 1:41 AM [facility] Monocyte % 6.2 0.0 - 14.0 % 08/05/2024 1:41 AM [facility] Eosinophil % 0.3 0.0 - 5.0 % 08/05/2024 1:41 AM [facility] Basophil % 0.5 0.0 - 2.0 % 08/05/2024 1:41 AM [facility] Neutrophil # 6.58 1.80 - 7.70 10*3/uL 08/05/2024 1:41 AM EST [facility] Immature Grans # 0.06(H) 0.00 - 0.03 10*3/uL 08/05/2024 1:41 AM EST [facility] Lymphocyte # 0.50(L) 1.00 - 4.75 10*3/uL 08/05/2024 1:41 AM EST [facility] Monocyte # 0.50 0.00 - 6.00 10*3/uL 08/05/2024 1:41 AM EST [facility] Eosinophil # <0.03 0.00 - 0.80 10*3/uL 08/05/2024 1:41 AM EST [facility] Basophil # <0.03 0.00 - 0.20 10*3/uL 08/05/2024 1:41 AM EST [facility] nRBC % 0.0 0 - 0 /100 WBCs 08/05/2024 1:41 AM EST [facility] nRBC # <0.01 0.00 - 0.13 10*3/uL 08/05/2024 1:41 AM EST [facility] Blood Structure of peripheral vein / Unknown Venipuncture / Unknown 08/05/2024 1:33 AM EST 08/05/2024 1:38 AM EST Celso Tai MD LAB BLOOD ORDERABLES Fin al Result Performing Organization Address City/State/[facility] Co de Phone Number [facility] [address] [place] [address], * (ABNORMAL) CMP - Comprehensive Metabolic Panel (08/05/2024 1:33 AM EST) NA 135(L) 136 - 145 mmol/L 08/05/2024 1:58 AM EST [facility] K 4.3 3.5 - 5.1 mmol/L 08/05/2024 1:58 AM EST [facility] Cl 99 98 - 109 mmol/L 08/05/2024 1:58 AM [facility] CO2 21(L) 22 - 32 mmol/L 08/05/2024 1:58 AM [facility] Anion Gap 19 >=0 08/05/2024 1:58 AM [facility] Glucose 108(H) 60 - 99 mg/dL 08/05/2024 1:58 AM [facility] Creatinine 1.10 0.50 - 1.12 mg/dL 08/05/2024 1:58 AM [facility] Calcium 9.2 8.4 - 10.4 mg/dL 08/05/2024 1:58 AM [facility] Total Protein 7.5 6.6 - 8.7 g/dL 08/05/2024 1:58 AM [facility] Albumin 4.2 3.5 - 5.0 g/dL 08/05/2024 1:58 AM [facility] Bilirubin, Total 0.8 0.2 - 1.2 mg/dL 08/05/2024 1:58 AM [facility] Alkaline Phosphatase 77 40 - 129 U/L 08/05/2024 1:58 AM [facility] AST 23 0 - 40 U/L 08/05/2024 1:58 AM [facility] ALT 19 <=41 U/L 08/05/2024 1:58 AM [facility] BUN 20 8 - 23 mg/dL 08/05/2024 1:58 AM [facility] eGFR 77 >=60 mL/min/1. 73m2 08/05/2024 1:58 AM [facility] Comment:The estimated glomer ular filtration rate (eGFR) is calculated using a new formula developed by the [facility]-ASN task force to eliminate race-based correction factors. The new formula uses serum/plasma creatinine, age, and gender to determine eGFR. A value below 60mls/min might indicate kidney disease and will be flagged. For additional information, see Jossy et al, Am J Kidney Dis. 2021;79(2):268- 288, A Unifying Approach for GFR estimation: Recommendations of the NKF-ASN Task Force on Reassessing the Inclusion of Race in Diagnosing Kidney Disease . Globulin, Total 3.3 2.1 - 4.2 g/dL 08/05/2024 1:58 AM EST [facility] A/G Ratio 1.3(L) 1.5 - 3.0 08/05/2024 1:58 AM EST [facility] Blood Structure of peripheral vein / Unknown Venipuncture / Unknown 08/05/2024 1:33 AM EST 08/05/2024 1:38 AM EST Celso Tai MD LAB BLOOD ORDERABLES Fin al Result [facility] [address] [place] [address] [address] [place] [address], * COVID-19, Flu A/B & RSV RNA PCR, Symptomatic (08/04/2024 9:31 PM EST) PCR, SARS CoV-2 RNA Not Detected Not Detected [employer] 08/04/2024 10:12 PM EST [facility] Flu A RNA PCR Not Detected Not Detected CEPHEID GENEXPERT 08/04/2024 10:12 PM EST [facility] Flu B RNA PCR Not Detected Not Detected CE[employer]ID [employer]EXP[employer] 08/04/2024 10:12 PM EST [facility] RSV RNA PCR Not Detected Not Detected [employer] 08/04/2024 10:12 PM EST [facility] Comment: Limitations: This RSV test is suitable for the pediatric population (less than 19 years of age) only. Performance characteristics have not been established for use with patients older than 19 years of age and immunocompromised patients. Test results must be evaluated in conjuction with other clinical data available to the physician. Swab Specimen from nasopharyngeal structure / Unknown Non-Blood Collection / Unknown 08/04/2024 9:31 PM EST 08/04/2024 9:34 PM EST Narrative [facility] - 08/04/2024 10:12 PM EST Methodology: The [employer] GeneXpert CoV-2/Flu/RSV plus assay is For Use Under an Emergency Use Authorization (EUA) Only with [employer]. The CoV-2/Flu/RSV plus assay is a rapid, multiplexed real-time RT-PCR assay intended for the simultaneous qualitative detection and differentiation of RNA from SARS-CoV-2, influenza A, influenza B, and Respiratory Syncytial Virus (RSV) in specimens collected from individuals suspected of a respiratory viral infection, by their healthcare provider. A positive test result for SARS-CoV-2, influenza or RSV indicates that RNA from that virus was detected. A negative test result indicates that RNA virus was not present in the specimen above the limit of detection. Therefore, a negative result does not rule out SARS-CoV-2, influenza or RSV infection and should not be used as the sole basis for treatment or other patient management decisions. Celso Tai MD LAB BODY FLUIDS AND AMAURY GOFF ORDERABLES Final Result Performing Organization Address City/State/[facility] Co de Phone Number [facility] [address] [place] [address], [place] [phone] from Last 3 Months Insurance [facility] MEDICAID Care Teams Street Worker Relationship Specialty Start Date End Date Norman Kim [address] [place] [address] PCP - General Psychology 08/04/24
--- OUTSIDE RECORDS SUMMARY | 2024-10-12 14:08 | XMS_ITS | Referral Summary ---
Author Organization [facility] Address [address] [place] [address] Care Team Providers Care Filenet P8 Developer Name Role Phone Norman Kim Primary Care Provider [phone] Encounters Date Type Department Care Team Description 08/04/2024 9:21 PM EST - 08/05/2024 6:20 AM EST Emergency [facility] Emergency Department [address] [place] [address] Celso Tai MD Gastroenteritis (Primary Dx) Discharge Disposition: Home or Self Care () from Last 3 Months Allergies Active Allergy Reactions Criticality Noted Date Comments Tramadol Unknown 08/04/2024 Medications ondansetron (ZOFRAN ODT) 4 mg disintegrating tablet Dissolve 1 tablet (4 mg total) in the mouth every 8 hours as needed for nausea or vomiting. 15 tablet Active Social History Tobacco Use Types Packs/Day Years [...] 08/04/2024 9:34 PM EST Plan of Treatment Not on file Procedures * Due to [place] [employer] law, this organization might not be sharing negative HIV tests. Procedure Name Priority Date/Time Associated Diagnosis Comments COMPREHENSIVE METABOLIC PANEL STAT 08/05/2024 1:33 AM EST CBC AUTO DIFFERENTIAL STAT 08/05/2024 1:33 AM EST MVL QS - COVID-19, FLU A/B & RSV RNA PCR, SYMPTOMATIC STAT 08/04/2024 9:31 PM EST from Last 3 Months Results * Due to [place] [employer] law, this organization might not be sharing negative HIV tests. * (ABNORMAL) CBC Auto Differential (08/05/2024 1:33 AM EST) WBC 7.6 4.8 - 10.8 10*3/uL 08/05/2024 1:41 AM EST [facility] RBC 5.31 4.70 - 6.10 10*6/uL 08/05/2024 1:41 AM EST [facility] Hemoglobin 16.4 13.7 - 16.5 g/dL 08/05/2024 1:41 AM EST [facility] Hematocrit 46.6 40.5 - 48.5 % 08/05/2024 1:41 AM EST [facility] MCV 87.8 80.0 - 94.0 fL 08/05/2024 1:41 AM EST [facility] MCH 30.9 26.0 - 34.0 pg 08/05/2024 1:41 AM EST [facility] MCHC 35.2 31.0 - 36.0 g/dL 08/05/2024 1:41 AM EST [facility] RDW 12.0 12.0 - 15.0 % 08/05/2024 1:41 AM EST [facility] RDW Standard Deviation 38.8 35.1 - 43.9 fL 08/05/2024 1:41 AM EST [facility] Platelets 249 140 - 440 10*3/uL 08/05/2024 1:41 AM EST [facility] MPV 9.2(L) 9.4 - 12.4 fL 08/05/2024 1:41 AM EST [facility] Neutrophil % 86.2(H) 50.0 - 75.0 % 08/05/2024 1:41 AM EST [facility] Immature Grans % 0.8 0.0 - 0.9 % 08/05/2024 1:41 AM [facility] Lymphocyte % 6.0(L) 20.0 - 44.0 % 08/05/2024 1:41 AM [facility] Monocyte % 6.2 0.0 - 14.0 % 08/05/2024 1:41 AM [facility] Eosinophil % 0.3 0.0 - 5.0 % 08/05/2024 1:41 AM [facility] Basophil % 0.5 0.0 - 2.0 % 08/05/2024 1:41 AM [facility] Neutrophil # 6.58 1.80 - 7.70 10*3/uL 08/05/2024 1:41 AM [facility] Immature Grans # 0.06(H) 0.00 - 0.03 10*3/uL 08/05/2024 1:41 AM EST [facility] Lymphocyte # 0.50(L) 1.00 - 4.75 10*3/uL 08/05/2024 1:41 AM [facility] Monocyte # 0.50 0.00 - 6.00 10*3/uL 08/05/2024 1:41 AM EST [facility] Eosinophil # <0.03 0.00 - 0.80 10*3/uL 08/05/2024 1:41 AM [facility] Basophil # <0.03 0.00 - 0.20 10*3/uL 08/05/2024 1:41 AM [facility] nRBC % 0.0 0 - 0 /100 WBCs 08/05/2024 1:41 AM EST [facility] nRBC # <0.01 0.00 - 0.13 10*3/uL 08/05/2024 1:41 AM EST [facility] Blood Structure of peripheral vein / Unknown Venipuncture / Unknown 08/05/2024 1:33 AM EST 08/05/2024 1:38 AM EST us Celso Tai MD LAB BLOOD ORDERABLES Fin al Result [facility] [address] [place] [address] [address] [place] [address], * (ABNORMAL) CMP - Comprehensive Metabolic Panel (08/05/2024 1:33 AM EST) NA 135(L) 136 - 145 mmol/L 08/05/2024 1:58 AM EST [facility] K 4.3 3.5 - 5.1 mmol/L 08/05/2024 1:58 AM EST [facility] Cl 99 98 - 109 mmol/L 08/05/2024 1:58 AM EST [facility] CO2 21(L) 22 - 32 mmol/L 08/05/2024 1:58 AM EST [facility] Anion Gap 19 >=0 08/05/2024 1:58 AM EST [facility] Glucose 108(H) 60 - 99 mg/dL 08/05/2024 1:58 AM EST [facility] Creatinine 1.10 0.50 - 1.12 mg/dL 08/05/2024 1:58 AM EST [facility] Calcium 9.2 8.4 - 10.4 mg/dL 08/05/2024 1:58 AM EST [facility] Total Protein 7.5 6.6 - 8.7 g/dL 08/05/2024 1:58 AM EST [facility] Albumin 4.2 3.5 - 5.0 g/dL 08/05/2024 1:58 AM EST [facility] Bilirubin, Total 0.8 0.2 - 1.2 mg/dL 08/05/2024 1:58 AM EST [facility] Alkaline Phosphatase 77 40 - 129 U/L 08/05/2024 1:58 AM EST [facility] AST 23 0 - 40 U/L 08/05/2024 1:58 AM EST [facility] ALT 19 <=41 U/L 08/05/2024 1:58 AM EST [facility] BUN 20 8 - 23 mg/dL 08/05/2024 1:58 AM EST [facility] eGFR 77 >=60 mL/min/1. 73m2 08/05/2024 1:58 AM EST [facility] Comment:The estimated glomer ular filtration rate (eGFR) is calculated using a new formula developed by the NKF-ASN task force to eliminate race-based correction factors. The new formula uses serum/plasma creatinine, age, and gender to determine eGFR. A value below 60mls/min might indicate kidney disease and will be flagged. For additional information, see Fenton et al, Am J Kidney Dis. 2021;79(2):268- 288, A Unifying Approach for GFR estimation: Recommendations of the NKF-ASN Task Force on Reassessing the Inclusion of Race in Diagnosing Kidney Disease . Globulin, Total 3.3 2.1 - 4.2 g/dL 08/05/2024 1:58 AM EST [facility] A/G Ratio 1.3(L) 1.5 - 3.0 08/05/2024 1:58 AM EST [facility] Blood Structure of peripheral vein / Unknown Venipuncture / Unknown 08/05/2024 1:33 AM EST 08/05/2024 1:38 AM EST us Celso Tai MD LAB BLOOD ORDERABLES Fin al Result [facility] [address] [place] [address] [address] [place] [address], * COVID-19, Flu A/B & RSV RNA PCR, Symptomatic (08/04/2024 9:31 PM EST) PCR, SARS CoV-2 RNA Not Detected Not Detected [employer]EXPERT 08/04/2024 10:12 PM EST [facility] Flu A RNA PCR Not Detected Not Detected CEPHEID GENEXPERT 08/04/2024 10:12 PM EST [facility] Flu B RNA PCR Not Detected Not Detected CEPHEID GENEXPERT 08/04/2024 10:12 PM EST [facility] RSV RNA PCR Not Detected Not Detected CEP[employer]ID [employer]EXPERT 08/04/2024 10:12 PM EST [facility] Comment: Limitations: This RSV test is [...] 9:31 PM EST 08/04/2024 9:34 PM EST [facility] - 08/04/2024 10:12 PM EST Methodology: The [employer] GeneXpert CoV-2/Flu/RSV plus assay is For Use Under an Emergency Use Authorization (EUA) Only with [employer]. The CoV-2/Flu/RSV plus assay is a [...] Celso Tai MD LAB BODY FLUIDS AND STOO LS ORDERABLES Final Result [facility] [address] [place] [address], [place] [phone] from Last 3 Months Insurance [facility] MEDICAID Care Teams Filenet P8 Developer Relationship Specialty Start Date End Date Norman Kim [address] [place] [address] PCP - General Psychology 08/04/24
--- OUTSIDE RECORDS SUMMARY | 2024-10-12 14:08 | XMS_ITS | Clinical Summary ---
Author Organization [facility] Address [address] [place] [address] Care Team Providers Care Assistant Foreman Name Role Phone Joanna Walter NP Primary Care Provider [phone] Allergies No known active allergies Medications No known medications Social History Tobacco Use Types Packs/Day Years Used Date Smoking Tobacco: Never Assessed Intimate Partner Violence Answer Date R ecorded Fear of Current or Ex-Partner Not on file Emotionally Abused Not on file 03/07/2023 Physically Abused Not on file 03/07/2023 Sexually Abused Not on file 03/07/2023 Feel Safe at Home Not on file 03/07/2023 Sex and Gender Information Value Date Recorded Sex Assigned at Not on file Legal Sex Male 11:45 AM EDT Gender Identity Not on file Sexual Orientation Not on file Last Filed Vital Signs Vital Sign Reading Time Taken Comments Blood Pressure 150/77 05/08/2022 11:57 AM EDT Pulse 67 05/08/2022 11:52 AM EDT Temperature 36.3 ??C (97.3 ??F) 05/08/2022 11:52 AM E DT Respiratory Rate 18 05/08/2022 11:52 AM EDT Oxygen Saturation 97% 05/08/2022 11:52 AM EDT Inhaled Oxygen Concentration - - Weight - - Height - - Body Mass Index - - Plan of Treatment Health Maintenance Due Date Last Done Comments Hepatitis C Screening 1965 DTaP/Tdap/Td (1 - Tdap) 1982 Colon Cancer Screening 2009 Pneumococcal 50+ years (1 of 1 - PCV) 2014 Zoster (Shingrix) (1 of 2) 2014 COVID-19 Vaccine ( - 2023-2 5 season) 2024 Influenza (#1) 2024 RSV (1 - 1-dose 75+ series) 2039 HPV Vaccine Aged Out No longer eligi ble based on patient's age to complete this topic Hep A Aged Out No longer eligi ble based on patient's age to complete this topic Hep B Aged Out No longer eligi ble based on patient's age to complete this topic Hib Aged Out No longer eligi ble based on patient's age to complete this topic Meningococcal ACWY Aged Out No longer eligible based on patient's age to complete this topic Zoster (Zostavax) Discontinued Insurance [place] FEE FOR SERVICE HMO [facility] Care Teams Assistant Foreman Relationship Specialty Start Date End Date Joanna Walter [employer] [facility] [address] [place] [id number] PCP - General Family Medicine 05/08/22
== END 2024-10-12 17:05 | disposition home or self-care (01) ==
LOC: HO.HMCFM 12:30
PROVIDERS: PCP Family Medicine; Visit Provider Family Medicine
DX: E78.00 Pure hypercholesterolemia, unspecified (principal); R73.01 Impaired fasting glucose

== ENCOUNTER 2025-01-29 14:38 | Outpatient (AMB) | payer OTHER, SELFPAY ==
--- OUTSIDE RECORDS SUMMARY | 2025-01-29 14:40 | XMS_ITS | Clinical Summary ---
Author Organization [facility] Address [address] [place] [address] Care Team Providers Care Filter Tender Name Role Phone Joanna Walter NP Primary Care Provider [phone] Allergies No known active allergies Medications No [...] 67 05/08/2022 11:52 AM EDT Temperature 36.3 C (97.3 F) 05/08/2022 11:52 AM EDT Respiratory Rate 18 05/08/2022 11:52 AM EDT [...] - 2023-2 5 season) 2024 Influenza (#1) 2025 RSV (1 - 1-dose 75+ series) 2039 [...] Discontinued Insurance [place] FEE FOR SERVICE HMO [facility] Care Teams Filter Tender Relationship Specialty Start Date End Date Joanna Walter NP [facility] [address] [place] [address] PCP - General Family Medicine 05/08/22
--- OUTSIDE RECORDS SUMMARY | 2025-01-29 14:40 | XMS_ITS | Referral Summary ---
Author Organization [facility] Address [address] [id number] Care Team Providers Care Owner [employer] Name Role Phone Norman Kmi Primary Care Provider [phone] Allergies Active Allergy Reactions Criticality Noted Date [...] 99 08/05/2024 2:44 AM EST Temperature 37.2 C (99 F) 08/04/2024 9:34 PM EST Respiratory Rate 18 08/05/2024 2:44 AM EST Oxygen Saturation 97% 08/05/2024 2:44 AM EST Inhaled Oxygen Concentration - - Weight 74.8 kg (165 lb) 08/04/2024 9:34 PM EST Height 167.6 cm (5' 6 ) 08/04/2024 9:34 PM EST Body Mass Index 26.63 08/04/2024 9:34 PM EST Plan of Treatment Not on file Insurance [facility] MEDICAID Care Teams Owner [employer] Relationship Specialty Start Date End Date Norman Kim [address] [place] [address] PCP - General Psychology 08/04/24
--- NOTE | 2025-01-29 15:03 | A.OFFPC_ITS ---
Intake Visit Reasons: f/u ADHD, Lipids PHQ-9 needed. Intake Note: Lobo presents in the office today for ADHD, Lipids, PHQ-9 Allergies No Known Allergies Allergy (Verified 10/12/24 12:28) Tobacco use date assessed: 07/27/24 Dental Screening Dental Screen Date: 07/27/24 HPI f/u ADHD, Lipids PHQ-9 needed. HPI Details 59 y/o male presents to f/u ADHD via tel emed. He is on vyvanse 70mg. Denies any increased anxiety, appetite issues, sleep problems. He notes medication is working well. Labs drawn 01/22/25. Reviewed labs with pt. Fasting blood sugar 149. TC 227. LDL 142. PFSH Surgical History Herniated cervical disc Family History Father No problems noted. Mother No problems noted. Social History Housing: House Alcohol intake: never Patient Tobacco Use Status: Former Tobacco user e-Cigarette/Vaping Use: Never Used Second Hand Smoke Exposure: No service: No Current occupational status: employed Current occupation: [employer] Cognitive needs: No Hearing needs: No Vision needs: No Questionnaire PHQ-9 Over the last 2 weeks, how often have you been bothered by any of the following problems? 1. Little interest or pleasure in doing things: not at all 2. Feeling down, depressed, or hopeless: not at all 3. Trouble falling or staying asleep, or sleeping too much: not at all 4. Feeling tired or having little energy: not at all 5. Poor appetite or overeating: not at all 6. Feeling bad about yourself - or that you are a failure or have let yourself or your family down: not at all 7. Trouble concentrating on things, such as reading the newspaper or watching television: more than half the days 8. Moving or speaking so slowly that other people could have noticed. Or the opposite - being so fidgety or restless that you have been moving around a lot more than usual: not at all 9. Thoughts that you would be better off or of hurting yourself in some way: not at all Total score: 2 Depression Screening Interpretation: Negative Depression Screening Done: Yes 27573 - PHQ-9 Billing: Yes Source: Developed by Drs. Francisco Sandoval, Elyssa Cisneros, Devon Ma and colleagues, with an educational francie from [employer] Thrive Questionnaire Date Thrive assessed: 07/27/24 I am a: Patient What is your living situation today?: I choose not to answer this question Within the past 12 months, did the food you bought not last and you didn't have the money to get more?: I choose not to answer this question Within the past 12 months, did you worry whether your food would run out before you got money to buy more?: I choose not to answer this question Do you have trouble paying for medicines?: I choose not to answer this question Do you have trouble getting transportation to medical appointments?: I choose not to answer this question Do you have trouble paying your heating and electricity bill?: I choose not to answer this question Do you have trouble taking care of your child, family member or friend?: I choose not to answer this question Do you have trouble with day-to-day activities such as bathing, preparing meals, shopping, managing finances, etc.?: I choose not to answer this question Are you currently unemployed and looking for a job?: I choose not to answer this question Are you interested in more education?: I choose not to answer this question Please select the resources that you would like help with: None Currently or been in a relationship where the following occur: I choose not to answer THRIVE Score: 0 DONA-7 AMB Questionnaire DONA-7 Date DONA - 7 assessed: 01/29/25 Feeling nervous, anxious, or on edge: 0 = Not at all Not being able to stop or control worryin = Not at all Worrying too much about different things: 0 = Not at all Trouble relaxin = Nearly every day Being so restless that it is hard to sit still: 0 = Not at all Becoming easily annoyed or irritable: 0 = Not at all Feeling afraid as if something awful might happen: 0 = Not at all Total DONA-7 score (0-4 normal; 5-9 mild; 10-14 moderate; 15-21 severe): 3 Source: Developed by Drs. Francisco Sandoval, Elyssa Cisneros, Devon Ma and colleagues, with an educational francie from [employer] DONA-7 Assessment Billing DONA-7 Assessment Tool: DONA-7 Assessment 76336 Review of Systems Const Denies chills, Denies fatigue, Denies fever(s), Denies headache(s) and Denies weakness ENT Denies dizziness and Denies headache(s) Card Denies dyspnea Resp Denies cough, Denies dyspnea, Denies wheezing and Denies other (shortness of breath) Musc Denies numbness and Denies tingling Neuro Denies dizziness, Denies headache(s), Denies numbness, Denies tingling and Denies weakness Psych Denies anxiety and Denies depression Endo Denies fatigue Aller/Immun Denies wheezing Physical exam (Primary Care) Tobacco/Smoking Status: Tobacco use Status Tobacco use date assessed 07/27/24 01/29/25 15:05 Patient Tobacco Use Status Former Tobacco user 01/29/25 15:05 e-Cigarette/Vaping Use Never Used 01/29/25 15:05 PHQ-9: PHQ-9 Score PHQ-9: Total score 2 01/29/25 16:27 Depression Screening Interpretation: Negative Thrive Assessment: Date of Thrive Assessment Date Thrive assessed 07/27/24 01/29/25 15:05 Currently or been in a relationship where the following occur: I choose not to answer Telehealth Telehealth Telehealth Platform: Telephone Location of provider rendering services: practice address Location of patient: address on file Patient Identification confirmed using: Name, : Yes Telehealth method: voice only Patient verbally consented to treatment: Yes Patient verbally consented to billing insurance company: Yes Patient informed of any privacy concerns related to visit: Yes Minutes spent on Phone/Video with Pt.: 8 Coding Level of Care Code Tele Est Pt Level 2 (35673) Diagnoses Elevated fasting glucose R73.01 Attention deficit hyperactivity disorder (ADHD), combined type F90.2 Attention deficit-hyperactivity disorder type: combined inattentive- hyperactive Hypercholesterolemia E78.00 Additional Codes DONA-7 Assessment Billing - DONA-7 Assessment Tool: DONA-7 Assessment 53790 ([id number]) PHQ-9 - 88417 - PHQ-9 Billing: Yes ([id number]) Assessment & Plan Assessment & Plan (1) Elevated fasting glucose: Code(s): R73.01 - Impaired fasting glucose Category: Medical Plan: Fasting blood sugar is elevated He will work on a diet low in sugars and starches Encouraged healthy and exercise. Will recheck fasting blood sugar along with A1c with his next blood draw (2) ADHD: Code(s): F90.9 - Attention-deficit hyperactivity disorder, unspecified type Category: Medical Qualifiers: Attention deficit-hyperactivity disorder type: combined inattentive- hyperactive Qualified Code(s): F90.2 - Attention-deficit hyperactivity disorder, combined type Plan: Patient is taking Vyvanse Medication is efficacious and he has no adverse effects such as anxiety anorexia or difficulty with sleep. Continue current medication (3) Hypercholesterolemia: Code(s): E78.00 - Pure hypercholesterolemia, unspecified Category: Medical Plan: LDL cholesterol is too high Goal is less than 100 He will work on a diet low in saturated fats and cholesterol Will recheck in a few months Orders: Orders Hemoglobin A1c Today R73.01 - Impaired fasting glucose
== END 2025-01-29 15:08 | disposition left against medical advice (07) ==
LOC: HO.HMCFM 14:39
PROVIDERS: PCP Family Medicine; Visit Provider Family Medicine
DX: R73.01 Impaired fasting glucose (principal); F90.2 Attention-deficit hyperactivity disorder, combined type; E78.00 Pure hypercholesterolemia, unspecified

== ENCOUNTER → 2025-01-29 14:38 | Outpatient (BNVA) | payer OTHER, SELFPAY | PROVIDERS: PCP Family Medicine; Visit Provider Family Medicine | DX: R73.01 Impaired fasting glucose (principal); F90.2 Attention-deficit hyperactivity disorder, combined type; E78.00 Pure hypercholesterolemia, unspecified; Z79.899 Other long term (current) drug therapy; Z13.31 Encounter for screening for depression; Z13.39 Encounter for screening examination for other mental health and behavioral disorders | CPT/HCPCS: 96127 ==